=== PATIENT | female | born 1970 | race African-American/Black ===

== ENCOUNTER → 2016-08-04 | Outpatient (CLI) | payer BC | END | disposition home or self-care (01) | LOC: MRI 09:50 | PROVIDERS: ATTEND Orthopaedic Surgery | DX: S39.012A Strain of muscle, fascia and tendon of lower back, initial encounter (principal); M47.816 Spondylosis without myelopathy or radiculopathy, lumbar region; M43.16 Spondylolisthesis, lumbar region; X58.XXXA Exposure to other specified factors, initial encounter; Y93.89 Activity, other specified; Y92.89 Other specified places as the place of occurrence of the external cause; Y99.8 Other external cause status | CPT/HCPCS: 72148 ==

== ENCOUNTER → 2017-03-01 | Outpatient (CLI) | payer BC ==
[2017-03-01 08:17] LABS: BASOPHILS % 0.4 % (0.0-2.0); EOSINOPHILS % 1.4 % (0.0-5.0); HEMATOCRIT. 31.3 % (36.0-48.0); HEMOGLOBIN. 10.1 g/dL (12.0-16.0); LYMPHOCYTES % 45.5 % (20.0-50.0); MEAN CORPUSCULAR HEMOGLOBIN 24.6 pg (28.0-32.0); MEAN CORPUSCULAR VOLUME 76.2 fL (81.0-99.0); MEAN PLATELET VOLUME 6.9 fl (7.4-10.4); MONOCYTES % 7.5 % (2.0-8.0); NEUTROPHILS % 45.2 % (40.0-76.0); PLATELET 379 x1000/uL (130-400); RED BLOOD CELL COUNT 4.11 mill/uL (4.2-5.4); RED CELL DISTRIBUTION WIDTH 15.8 % (11.6-14.6)
[2017-03-01 09:37] LABS: CARBON DIOXIDE 26 mEq/L (21-32); CHLORIDE 103 mEq/L (98-107); HDL CHOLESTEROL 67 mg/dL (40-59); LDL CHOLESTEROL 121 mg/dL (5-100)
== END | disposition home or self-care (01) ==
LOC: LAB 07:57
PROVIDERS: ATTEND Internal Medicine Critical Care Medicine
DX: Z00.00 Encounter for general adult medical examination without abnormal findings (principal)
CPT/HCPCS: 36415; 80053; 80061; 83036; 85025

== ENCOUNTER → 2017-03-08 | Outpatient (CLI) | payer BC | END | disposition home or self-care (01) | LOC: MAMMO 08:05 | PROVIDERS: ATTEND Internal Medicine Critical Care Medicine | DX: Z12.31 Encounter for screening mammogram for malignant neoplasm of breast (principal) | CPT/HCPCS: G0202 ==

== ENCOUNTER → 2018-09-26 | Outpatient (CLI) | payer BC ==
[~2018-09-26] MED LIST: REGADENOSON 0.4 MG/5 ML IV ONE
== END | disposition home or self-care (01) ==
LOC: CARD 07:30
PROVIDERS: ATTEND Specialist
DX: R07.89 Other chest pain (principal)
CPT/HCPCS: 78452; 93017; 93306; A9500; J2785

== ENCOUNTER → 2024-01-09 | Outpatient (CLI) | payer MEDICARE, MEDICAID | END | disposition home or self-care (01) | LOC: RAD 12:51 | PROVIDERS: ATTEND Neurological Surgery | DX: M47.817 Spondylosis without myelopathy or radiculopathy, lumbosacral region (principal); M43.8X5 Other specified deforming dorsopathies, thoracolumbar region | CPT/HCPCS: 72114 ==

== ENCOUNTER → 2024-05-07 | Outpatient (CLI) | payer MEDICARE, MEDICAID | END | disposition home or self-care (01) | LOC: MRI 10:44 | PROVIDERS: ATTEND Neurological Surgery | DX: M47.817 Spondylosis without myelopathy or radiculopathy, lumbosacral region (principal); M48.07 Spinal stenosis, lumbosacral region; S33.140A Subluxation of L4/L5 lumbar vertebra, initial encounter; M43.06 Spondylolysis, lumbar region; M47.895 Other spondylosis, thoracolumbar region; M48.061 Spinal stenosis, lumbar region without neurogenic claudication; M54.89 Other dorsalgia; X58.XXXA Exposure to other specified factors, initial encounter; Y93.89 Activity, other specified; Y92.89 Other specified places as the place of occurrence of the external cause; Y99.8 Other external cause status | CPT/HCPCS: 72148 ==

== ENCOUNTER → 2024-09-19 | Outpatient (CLI) | payer MEDICARE, MEDICAID | END | disposition home or self-care (01) | LOC: MRI 10:32 | PROVIDERS: ATTEND Internal Medicine Critical Care Medicine | DX: M47.816 Spondylosis without myelopathy or radiculopathy, lumbar region (principal); M51.370 Other intervertebral disc degeneration, lumbosacral region with discogenic back pain only; M48.07 Spinal stenosis, lumbosacral region | CPT/HCPCS: 72148 ==

== ENCOUNTER → 2024-10-11 | Outpatient (CLI) | payer MEDICARE, MEDICAID | END | disposition home or self-care (01) | LOC: MRI 09:35 | PROVIDERS: ATTEND Internal Medicine Critical Care Medicine | DX: M50.223 Other cervical disc displacement at C6-C7 level (principal); M50.222 Other cervical disc displacement at C5-C6 level; M50.221 Other cervical disc displacement at C4-C5 level; M48.02 Spinal stenosis, cervical region | CPT/HCPCS: 72141 ==

== ENCOUNTER → 2024-11-26 | Outpatient (CLI) | payer MEDICARE, MEDICAID | END | disposition home or self-care (01) | LOC: RAD 12:27 | PROVIDERS: ATTEND Internal Medicine Critical Care Medicine | DX: Z01.818 Encounter for other preprocedural examination (principal) | CPT/HCPCS: 71046 ==

== ENCOUNTER 2024-12-16 15:00 | Inpatient (IN) | payer MEDICARE, MEDICAID ==
[~2024-12-16] VITALS: Ht 162.6 cm; Wt 75.7 kg
[~2024-12-16 15:00] MED LIST changes: +HYDR-459 PO; +IBUP-2030 PO; +METF-414 PO; -REGADENOSON 0.4 MG/5 ML IV ONE; +ROSU40TA PO
[2024-12-16 15:30] VITALS: BP 143/64; PULSE 90; RESP 18; TEMP 36.9184
[2024-12-16] MEDS ORDERED: GUAIFENESIN 200MG/10ML SUGAR FREE UDC PO PRN (15:45)
[2024-12-16] MEDS ORDERED: ONDANSETRON HCL 4MG/2ML INJ IV PRN (15:45)
[2024-12-16] MEDS ORDERED: DEXTROSE 50% WATER 50ML SYRINGE IV PRN (15:45)
[2024-12-16] MEDS ORDERED: IPRATROPIUM/ALBUTEROL 0.5-3(2.5)MG/3ML NEB HHN PRN (15:45)
[2024-12-16] MEDS ORDERED: DOCUSATE SODIUM 100MG CAPSULE PO PRN (15:45)
[2024-12-16] MEDS ORDERED: NALOXONE HCL 0.4MG/ML VIAL IV PRN (16:15)
[2024-12-16] MEDS: BLOOD SUGAR DIAGNOSTIC STRIP TEST SCH (17:00)
[2024-12-16] MEDS: INSULIN LISPRO 100 UNITS/ML SUBCUT SCH (17:00)
[2024-12-16] MEDS: DOCUSATE SODIUM 100MG CAPSULE PO SCH (18:47)
[2024-12-16] MEDS: LACTULOSE 20G/30ML UDC PO NR (18:47)
[2024-12-16 20:00] VITALS: BP 160/72; PULSE 79; RESP 18; TEMP 36.6; O2SAT 98
[2024-12-16] MEDS: OXYCODONE HCL/ACETAMINOPHEN 5/325MG TABLET PO PRN (20:56)
[2024-12-16 22:38] LABS: CLARITY URINE CLEAR (CLEAR); COLOR URINE YELLOW (YELLOW); GLUCOSE URINE NEGATIVE (NEGATIVE); KETONES URINE NEGATIVE (NEGATIVE); LEUKOCYTE ESTERASE URINE NEGATIVE (NEGATIVE); NITRITE URINE NEGATIVE (NEGATIVE); OCCULT BLOOD URINE NEGATIVE (NEGATIVE); PH URINE 7.5 (4.5-8.0); PROTEIN URINE NEGATIVE (NEGATIVE); SPECIFIC GRAVITY URINE 1.006 (1.005-1.030); UROBILINOGEN URINE 1.0 E.U./dL (0.2-1.0)
[2024-12-17 08:00] VITALS: BP 165/88; PULSE 76; RESP 19; TEMP 36.7; O2SAT 98
[2024-12-17] MEDS: PANTOPRAZOLE SODIUM 40 MG/VIAL IV SCH (08:08)
[2024-12-17 11:42] LABS: BASOPHILS % 0.3 % (0.0-2.0); EOSINOPHILS % 2.6 % (0.0-5.0); HEMATOCRIT. 31.2 % (36.0-48.0); HEMOGLOBIN. 10.2 g/dL (12.0-16.0); LYMPHOCYTES % 26.3 % (20.0-50.0); MEAN PLATELET VOLUME 7.8 fl (7.4-10.4); MONOCYTES % 8.6 % (2.0-8.0); NEUTROPHILS % 62.2 % (40.0-76.0); PLATELET 291 x1000/uL (130-400); RED BLOOD CELL COUNT 3.84 mill/uL (4.2-5.4); RED CELL DISTRIBUTION WIDTH 14.1 % (11.6-14.6)
[2024-12-17 11:43] LABS: CREATININE 0.6 mg/dL (0.6-1.0); UREA NITROGEN BLOOD < 5 mg/dL (9-23)
[2024-12-17 11:45] LABS: ASPARTATE AMINOTRANSFERASE 15 IU/L (<34); BILIRUBIN TOTAL 0.5 mg/dL (0.1-1.0); PROTEIN TOTAL 6.9 g/dL (6.0-8.3)
[2024-12-17] MEDS: BISACODYL 5MG TABLET PO PRN (16:39)
[2024-12-17] MEDS: LACTULOSE 20G/30ML UDC PO PRN (16:47)
[2024-12-17] MEDS: NA PHOS,M-B/NA PHOS,DI-BA ENEMA 118ML PR SCH (18:29)
[2024-12-17 20:00] VITALS: BP 171/67; PULSE 86; RESP 19; TEMP 36.7; O2SAT 98
[2024-12-17] MEDS: CLONIDINE 0.1MG TABLET PO PRN (20:49)
[2024-12-18] MEDS: MELATONIN 3MG TABLET PO SCH (00:19)
[2024-12-18 08:00] VITALS: BP 137/77; PULSE 71; RESP 18; TEMP 36.4; O2SAT 97
[2024-12-18] MEDS: MAGNESIUM/ALUMINUM HYDROXIDE/SIMETHICONE 30ML UDC PO PRN (13:54)
[2024-12-18 20:00] VITALS: BP 161/77; PULSE 79; RESP 18; TEMP 36.4; O2SAT 100
[2024-12-18 22:30] VITALS: BP 151/79
[2024-12-19 03:30] VITALS: BP 137/72
[2024-12-19 08:00] VITALS: BP 147/79; PULSE 80; RESP 19; TEMP 36.8; O2SAT 100
[2024-12-19] MEDS: BISACODYL 10MG SUPP PR SCH (14:30)
[2024-12-19] MEDS: POLYETHYLENE GLYCOL 3350 (17GM) 1 DOSE PACK PO SCH (14:30)
[2024-12-19 20:00] VITALS: BP 138/88; PULSE 79; RESP 18; TEMP 36.4; O2SAT 95
[2024-12-20] MEDS: HYDROMORPHONE HCL/PF 1MG/ML INJ IV PRN (03:13)
[2024-12-20 08:00] VITALS: BP 134/71; PULSE 72; RESP 18; TEMP 36.3; O2SAT 100
[2024-12-20] MEDS: NA PHOS,M-B/NA PHOS,DI-BA ENEMA 118ML PR SCH (15:45)
[2024-12-20 20:00] VITALS: BP 140/80; PULSE 75; RESP 18; TEMP 36.4; O2SAT 100
[2024-12-21 08:00] VITALS: BP 160/79; PULSE 73; RESP 18; TEMP 36.7; O2SAT 99
[2024-12-21] MEDS: FAMOTIDINE 20MG/2ML VIAL IV SCH (09:25)
[2024-12-21] MEDS ORDERED: NALOXONE HCL 0.4MG/ML VIAL IV PRN (19:45)
[2024-12-21 20:00] VITALS: BP 130/70; PULSE 76; RESP 18; TEMP 36.5; O2SAT 99
[2024-12-22] MEDS: OXYCODONE HCL/ACETAMINOPHEN 5/325MG TABLET PO PRN (00:39)
[2024-12-22 08:00] VITALS: BP 134/88; PULSE 70; RESP 17; TEMP 36.6; O2SAT 98
[2024-12-22 19:56] VITALS: BP 161/73; PULSE 72; RESP 18; TEMP 36.8; O2SAT 99
[2024-12-22 21:58] LABS: BASOPHILS % 0.4 % (0.0-2.0); EOSINOPHILS % 3.7 % (0.0-5.0); HEMATOCRIT. 29.3 % (36.0-48.0); HEMOGLOBIN. 9.5 g/dL (12.0-16.0); LYMPHOCYTES % 39.3 % (20.0-50.0); MEAN PLATELET VOLUME 7.7 fl (7.4-10.4); MONOCYTES % 6.1 % (2.0-8.0); NEUTROPHILS % 50.5 % (40.0-76.0); PLATELET 471 x1000/uL (130-400); RED BLOOD CELL COUNT 3.56 mill/uL (4.2-5.4); RED CELL DISTRIBUTION WIDTH 14.5 % (11.6-14.6)
[2024-12-23 08:00] VITALS: BP 118/66; PULSE 76; RESP 18; TEMP 36.7; O2SAT 98
[2024-12-23] MEDS: LACTULOSE 20G/30ML UDC PO PRN (13:28)
[2024-12-23 20:00] VITALS: BP 135/85; PULSE 84; RESP 18; TEMP 36.6; O2SAT 99
[2024-12-23] MEDS: MELATONIN 3MG TABLET PO SCH (22:47)
[2024-12-24 08:00] VITALS: BP 131/69; PULSE 84; RESP 20; TEMP 36.1; O2SAT 98
[2024-12-24] MEDS: FAMOTIDINE 20MG TABLET PO SCH (09:39)
[2024-12-24] MEDS: BISACODYL 5MG TABLET PO SCH (09:40)
[2024-12-24 20:00] VITALS: BP 127/77; PULSE 84; RESP 18; TEMP 36.1; O2SAT 98
[2024-12-25 08:00] VITALS: BP 132/71; PULSE 68; RESP 16; TEMP 36.6; O2SAT 99
[2024-12-25 20:00] VITALS: BP 139/76; PULSE 75; RESP 18; TEMP 36.3; O2SAT 100
[2024-12-26 05:21] LABS: BASOPHILS % 0.3 % (0.0-2.0); EOSINOPHILS % 3.1 % (0.0-5.0); HEMATOCRIT. 27.1 % (36.0-48.0); HEMOGLOBIN. 8.9 g/dL (12.0-16.0); LYMPHOCYTES % 41.4 % (20.0-50.0); MEAN PLATELET VOLUME 7.4 fl (7.4-10.4); MONOCYTES % 7.2 % (2.0-8.0); NEUTROPHILS % 48.0 % (40.0-76.0); PLATELET 475 x1000/uL (130-400); RED BLOOD CELL COUNT 3.35 mill/uL (4.2-5.4); RED CELL DISTRIBUTION WIDTH 14.5 % (11.6-14.6)
[2024-12-26 05:29] LABS: CREATININE 0.6 mg/dL (0.6-1.0); UREA NITROGEN BLOOD 8 mg/dL (9-23)
[2024-12-26 05:31] LABS: ASPARTATE AMINOTRANSFERASE 13 IU/L (<34); BILIRUBIN TOTAL 0.3 mg/dL (0.1-1.0)
[2024-12-26 05:32] LABS: PROTEIN TOTAL 6.6 g/dL (6.0-8.3)
[2024-12-26 08:00] VITALS: BP 130/73; PULSE 76; RESP 16; TEMP 37.1; O2SAT 99
[2024-12-26] MEDS: LACTULOSE 20G/30ML UDC PO PRN (18:31)
[2024-12-26 20:00] VITALS: BP 134/74; PULSE 81; RESP 18; TEMP 36.4; O2SAT 98
[2024-12-26] MEDS ORDERED: OXYCODONE HCL/ACETAMINOPHEN 5/325MG TABLET PO PRN (22:30)
[2024-12-26] MEDS: OXYCODONE HCL/ACETAMINOPHEN 5/325MG TABLET PO PRN (23:06)
[2024-12-26] MEDS ORDERED: LACT-390 PO (23:55)
[2024-12-26] MEDS ORDERED: POLY17PO43 PO (23:55)
[2024-12-26] MEDS ORDERED: FAMO20TA8 PO (23:55)
[2024-12-26] MEDS ORDERED: METF-414 PO (23:55)
[2024-12-26] MEDS ORDERED: BISA PO (23:55)
[2024-12-26] MEDS ORDERED: MELA1TAB51 PO (23:55)
[2024-12-27 08:00] VITALS: BP 123/74; PULSE 69; RESP 14; TEMP 36.4; O2SAT 99
[2024-12-27 12:25] VITALS: BP 123/74; PULSE 69; RESP 14; TEMP 97.5
[2024-12-27] MEDS ORDERED: OXYC1TAB5 PO (17:12)
[2024-12-28] MEDS ORDERED: OXYC1TAB5 PO (10:11)
== END 2024-12-27 14:00 | disposition home health service (06) | DRG 551 ==
PROVIDERS: ADMIT Psychiatry & Neurology Neurology; ATTEND Internal Medicine
PROC: GZ58ZZZ Individual Psychotherapy, Cognitive-Behavioral (ICD-10-PCS; principal; 2024-12-18)
DX: M48.061 Spinal stenosis, lumbar region without neurogenic claudication (principal); J96.01 Acute respiratory failure with hypoxia; G82.20 Paraplegia, unspecified; F33.1 Major depressive disorder, recurrent, moderate; M43.16 Spondylolisthesis, lumbar region; M47.816 Spondylosis without myelopathy or radiculopathy, lumbar region; I10 Essential (primary) hypertension; E87.6 Hypokalemia; E78.5 Hyperlipidemia, unspecified; E66.811 Obesity, class 1; E11.9 Type 2 diabetes mellitus without complications; D64.9 Anemia, unspecified; F41.1 Generalized anxiety disorder; K59.00 Constipation, unspecified; G89.29 Other chronic pain; M54.50 Low back pain, unspecified; M54.9 Dorsalgia, unspecified; Z68.30 Body mass index [BMI] 30.0-30.9, adult; K21.9 Gastro-esophageal reflux disease without esophagitis; Z91.81 History of falling
CPT/HCPCS: 36415; 80053; 81003; 82962; 83036; 85025; 87077; 87186; 92610; 93971; 97110; 97112; 97116; 97162; 97166; 97530; 97535; A4606; J1171; J1308; J1815; J2470; A5200

== ENCOUNTER → 2025-03-12 | Outpatient (CLI) | payer MEDICARE, MEDICAID ==
[~2025-03-12] MED LIST changes: +BISA PO; +FAMO20TA8 PO; -HYDR-459 PO; -IBUP-2030 PO; +LACT-390 PO; +MELA1TAB51 PO; +OXYC1TAB5 PO; +POLY17PO43 PO
== END | disposition home or self-care (01) ==
LOC: RAD 09:21
PROVIDERS: ATTEND Neurological Surgery
DX: S33.140A Subluxation of L4/L5 lumbar vertebra, initial encounter (principal); M54.9 Dorsalgia, unspecified; M85.88 Other specified disorders of bone density and structure, other site; X58.XXXA Exposure to other specified factors, initial encounter; Y93.89 Activity, other specified; Y92.89 Other specified places as the place of occurrence of the external cause; Y99.8 Other external cause status
CPT/HCPCS: 72114